=== PATIENT | female | born 1985 | race Caucasian/White ===

== ENCOUNTER 2017-03-23 18:20 | Emergency (ER) | payer OTHER ==
[2017-03-23 18:59] VITALS: BP 104/59; PULSE 70; RESP 20; TEMP 98.8
--- NOTE | 2017-03-23 20:00 | ED ---
Extremity Problem HPI - General Chief complaint: Extremity Problem,Nontraumatic Stated complaint: Joint pain all over Time Seen by Provider: 03/23/17 19:10 Source: patient, RN notes reviewed, old records reviewed Mode of arrival: ambulatory Limitations: no limitations - History of Present Illness Initial comments: This is a 31 year old female with joint pain in hands, ankles, feet, and knees for one day. Denies any falls, trauma, or increased activity. She reports she woke up with pain. She states she is concerned she has RA. She denies any changes in skin, fever, swelling of joints, nausea, vomiting. She reports she cannot follow up with PCP because she owes them money. Denies any other complaints. REports she took motrin with some help. Reports she is able to ambulate. 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 - Related Data Home Medications Medication Instructions Recorded Confirmed Thyroid, Pork [[place] Thyroid] 30 mg PO DAILY 05/20/16 06/30/16 Previous Rx's Medication Instructions Recorded Cyclobenzaprine [Flexeril] 10 mg PO TID #20 tab 06/30/16 Ibuprofen [Motrin] 600 mg PO Q8HR PRN #20 tab 03/23/17 methylPREDNISolone Dose Pack 4 mg PO DIRECTED #21 package 03/23/17 [Medrol Dose Pack] Allergies Allergy/AdvReac Type Severity Reaction Status Date / Time adhesive Allergy Rash/Hives Verified 03/23/17 18:58 Review of Systems ROS Statement: Those systems with pertinent positive or pertinent negative responses have been documented in the HPI. ROS Other: All systems not noted in ROS Statement are negative. Past Medical History Past Medical History: Thyroid Disorder History of Any Multi-Drug Resistant Organisms: None Reported Past Surgical History: Cholecystectomy Past Psychological History: No Psychological Hx Reported Smoking Status: Current every day smoker Past Alcohol Use History: None Reported Past Drug Use History: None Reported General Exam - General Exam Comments Initial Comments: Morbidly obese 31 year old female, no distress. Limitations: no limitations General appearance: alert, in no apparent distress Head exam: Present: atraumatic, normocephalic, normal inspection Eye exam: Present: normal appearance, PERRL, EOMI. Absent: scleral icterus, conjunctival injection, periorbital swelling ENT exam: Present: normal exam, mucous membranes moist Neck exam: Present: normal inspection. Absent: tenderness, meningismus, lymphadenopathy Respiratory exam: Present: normal lung sounds bilaterally. Absent: respiratory distress, wheezes, rales, rhonchi, stridor Cardiovascular Exam: Present: regular rate, normal rhythm, normal heart sounds. Absent: systolic murmur, diastolic murmur, rubs, gallop, clicks GI/Abdominal exam: Present: soft, normal bowel sounds. Absent: distended, tenderness, guarding, rebound, rigid Extremities exam: Present: normal inspection, full ROM, normal capillary refill. Absent: tenderness, pedal edema, joint swelling, calf tenderness Neurological exam: Present: alert, oriented X3, CN II-XII intact Psychiatric exam: Present: normal affect, normal mood Skin exam: Present: warm, dry, intact, normal color. Absent: rash Course Vital Signs 03/23/17 18:57 Temperature 98.8 F Pulse Rate 70 Respiratory 20 Rate Blood Pressure 104/59 O2 Sat by Pulse 96 Oximetry Medical Decision Making - Medical Decision Making This is a 31 year old female with joint pain in hands, ankles, feet, and knees for one day. Denies any falls, trauma, or increased activity. She reports she woke up with pain. She states she is concerned she has RA. She denies any changes in skin, fever, swelling of joints, nausea, vomiting. She reports she cannot follow up with PCP because she owes them money. Denies any other complaints. REports she took motrin with some help. Physcial exam is benign, no swelling or areas of erythema on joints. Patient was informed she needs to follow up with PCP for labwork for RA and follow up with them. Discussed I can discharge with a steroid course and antiinflammatory medication and following up is most important. Disposition Clinical Impression: Joint pain Disposition: HOME SELF-CARE Condition: Good Instructions: Arthralgia (ED), Swollen Joint (ED) Additional Instructions: Advised to follow-up with their primary care provider for further workup and lab testing. Return to emergency department if any alarming signs or symptoms occur. Take antibiotic try medicine as well as the steroid prescription. Return to the emergency department if any alarming signs or symptoms occur. Prescriptions: Ibuprofen [Motrin] 600 mg PO Q8HR PRN #20 tab PRN Reason: Pain methylPREDNISolone Dose Pack [Medrol Dose Pack] 4 mg PO DIRECTED #21 package Referrals: Kevon Paulson DO [Primary Care Provider] - 1-2 days Time of Disposition: 19:58
== END 2017-03-23 20:11 | disposition home or self-care (01) ==
LOC: EC 18:20
DX: M25.50 Pain in unspecified joint (principal); E07.9 Disorder of thyroid, unspecified; F17.200 Nicotine dependence, unspecified, uncomplicated; Z79.899 Other long term (current) drug therapy; Z91.048 Other nonmedicinal substance allergy status
CPT/HCPCS: 99283

== ENCOUNTER 2020-08-17 21:42 | Emergency (ER) | payer OTHER ==
--- NOTE | 2020-08-17 22:27 | XR ---
EXAMINATION TYPE: XR foot complete RT DATE OF EXAM: 08/17/2020 COMPARISON: NONE HISTORY: Foot pain TECHNIQUE: 3 views FINDINGS: Metatarsals appear intact. The toes appear intact. I see no fracture nor dislocation. There are small Achilles calcaneal spur. IMPRESSION: No acute abnormality of the right foot.
--- NOTE | 2020-08-17 22:28 | XR ---
EXAMINATION TYPE: XR ankle complete RT DATE OF EXAM: 08/17/2020 COMPARISON: NONE HISTORY: Ankle pain TECHNIQUE: 3 views FINDINGS: There is an Achilles calcaneal spur. Ankle mortise is anatomic. I see no fracture nor dislo cation. IMPRESSION: Calcaneal spurring. No fracture seen.
--- NOTE | 2020-08-17 22:28 | ED ---
Upper Extremity HPI - General Chief Complaint: Extremity Injury, Upper Stated Complaint: Fall Time Seen by Provider: 08/17/20 21:56 Source: patient, family, RN notes reviewed, old records reviewed Mode of arrival: wheelchair Limitations: no limitations - History of Present Illness Initial Comments: Patient's a 34-year-old female who presented to the ER today for evaluation for right ankle pain after twisting and left hand pain specifically middle and fourth finger after fall. Patient reports that she was walking through a narrow alleyway while helping a friend managed her forearm. Patient tripped over a mat and fell causing these injuries. Denies any head or neck injury. She reports that she is right-handed. - Related Data Home Medications Medication Instructions Recorded Confirmed Thyroid, Pork [[place] Thyroid] 30 mg PO DAILY 05/20/16 06/30/16 Previous Rx's Medication Instructions Recorded Cyclobenzaprine [Flexeril] 10 mg PO TID #20 tab 06/30/16 Ibuprofen [Motrin] 600 mg PO Q8HR PRN #20 tab 03/23/17 methylPREDNISolone Dose Pack 4 mg PO DIRECTED #21 package 03/23/17 [Medrol Dose Pack] Allergies Allergy/AdvReac Type Severity Reaction Status Date / Time adhesive Allergy Rash/Hives Verified 08/17/20 21:52 Review of Systems ROS Statement: Those systems with pertinent positive or pertinent negative responses have been documented in the HPI. ROS Other: All systems not noted in ROS Statement are negative. Past Medical History Past Medical History: Thyroid Disorder Additional Past Medical History / Comment(s): Lupus History of Any Multi-Drug Resistant Organisms: None Reported Past Surgical History: Adenoidectomy, Cholecystectomy, Tonsillectomy Additional Past Surgical History / Comment(s): Tyroid Past Psychological History: Anxiety Smoking Status: Current every day smoker Past Alcohol Use History: None Reported Past Drug Use History: None Reported General Exam - General Exam Comments Initial Comments: 34 -year-old female. No distress. Limitations: no limitations General appearance: alert, in no apparent distress Head exam: Present: atraumatic, normocephalic, normal inspection Eye exam: Present: normal appearance, PERRL, EOMI. Absent: scleral icterus, conjunctival injection, periorbital swelling ENT exam: Present: normal exam, mucous membranes moist Neck exam: Present: normal inspection. Absent: tenderness, meningismus, lymphadenopathy Respiratory exam: Present: normal lung sounds bilaterally. Absent: respiratory distress, wheezes, rales, rhonchi, stridor Cardiovascular Exam: Present: regular rate, normal rhythm, normal heart sounds. Absent: systolic murmur, diastolic murmur, rubs, gallop, clicks GI/Abdominal exam: Present: soft, normal bowel sounds. Absent: distended, tenderness, guarding, rebound, rigid Extremities exam: Present: normal inspection, full ROM, normal capillary refill. Absent: tenderness, pedal edema, joint swelling, calf tenderness Left Forearm Wrist exam: Present: normal inspection, full ROM Hand Wrist exam: Present: normal inspection, tenderness (Over her middle finger), swelling. Absent: full ROM Neuro motor exam: Present: wrist extension intact, thumb opposition intact, thumb IP flexion intact, thumb adduction intact, fingers 2-5 abduction intact Right Ankle exam: Present: normal inspection, full ROM Foot/Toe exam: Present: full ROM, tenderness (Over the proximal fifth metatarsal). Absent: normal inspection Neurovascular tendon exam: Present: no vascular compromise Back exam: Present: normal inspection Neurological exam: Present: alert, oriented X3, CN II-XII intact Course Vital Signs 08/17/20 21:49 Temperature 99 F Pulse Rate 69 Respiratory 20 Rate Blood Pressure 110/74 O2 Sat by Pulse 100 Oximetry Procedures - Orthopedic Splinting/Casting Injury #1 Side: right Lower Extremity Injury Location: ankle Lower Extremity Immobilizer: Chau wrap Injury #2 Side: left Upper Extremity Injury Location: hand Upper Extremity Immobilizer: volar splint, finger (other), Chau wrap Medical Decision Making - Medical Decision Making 34-year-old female presents with left finger is brain and presenting to the middle finger as well as right ankle sprain after tripping over a mat outside today. Patient is neurovascularly intact. X-rays reviewed and show no acute fracture. Discussed likely could jammed his finger and sprained ankle. Patient is given Chau wrap and splint for the finger. Advised following up with primary care doctor symptoms came persist. Discussed Motrin Tylenol and icing for pain. - Radiology Data Radiology results: report reviewed Ankle x-ray shows calcaneal spurring. No fracture noted. No acute abnormality of the right foot. Negative left hand exam. No fracture seen. Disposition Clinical Impression: Ankle sprain, Finger sprain Disposition: HOME SELF-CARE Condition: Good Instructions (If sedation given, give patient instructions): Hand Sprain (ED), Ankle Sprain (ED) Additional Instructions: Patient is to take Tylenol or Motrin for pain. Patient can write a Chau wrap for swelling and finger splint in place. . Patient should keep the foot up and elevated. Return to the emergency department if any alarming signs or symptoms occur. Is patient prescribed a controlled substance at d/c from ED?: No Referrals: Maurilio Crawley DO [Primary Care Provider] - 1-2 days Time of Disposition: 23:03
--- NOTE | 2020-08-17 22:28 | XR ---
EXAMINATION TYPE: XR hand complete LT DATE OF EXAM: 08/17/2020 COMPARISON: NONE HISTORY: Pain TECHNIQUE: 3 views FINDINGS: Metacarpals are intact. I see no fracture nor dislocation. The fingers are intact. Joint sp aces appear normal. IMPRESSION: Negative left hand exam. No fracture seen.
[2020-08-17 23:56] VITALS: RESP 18
[2020-08-17 23:59] VITALS: BP 110/76; PULSE 66; TEMP 98.7
== END 2020-08-17 23:34 | disposition home or self-care (01) ==
LOC: EC 21:42
DX: S93.401A Sprain of unspecified ligament of right ankle, initial encounter (principal); S63.613A Unspecified sprain of left middle finger, initial encounter; F17.200 Nicotine dependence, unspecified, uncomplicated; W01.0XXA Fall on same level from slipping, tripping and stumbling without subsequent striking against object, initial encounter; Y93.89 Activity, other specified; Y92.009 Unspecified place in unspecified non-institutional (private) residence as the place of occurrence of the external cause; Z91.048 Other nonmedicinal substance allergy status
CPT/HCPCS: 99284